=== PATIENT | male | born 1995 | race Caucasian/White ===

== ENCOUNTER 2017-08-27 08:47 | Emergency (ER) | payer MEDICAID ==
[2017-08-27] MEDS: DIPHTH/TET/ACEL PERTUSS (ADULT) 0.5 ML VIAL IM* (09:09)
[2017-08-27] MEDS: LIDOCAINE 1% (MDV) 10 ML INJ INJ (09:17)
[2017-08-27] MEDS ORDERED: LIDOCAINE 1% (MDV) 20 ML INJ SC (09:30)
[2017-08-27] MEDS: CEPHALEXIN 500 MG CAP PO (10:37)
== END 2017-08-27 13:54 | disposition short-term general hospital (02) ==
LOC: FTE 08:47
DX: S61.012A Laceration without foreign body of left thumb without damage to nail, initial encounter (principal); W26.0XXA Contact with knife, initial encounter; Y92.89 Other specified places as the place of occurrence of the external cause; Z23 Encounter for immunization
CPT/HCPCS: 12002; 90471; 90715; 99285-25

== ENCOUNTER 2017-08-31 10:19 | Emergency (ER) | payer MEDICAID | END 2017-08-31 11:13 | disposition home or self-care (01) | LOC: FTE 10:19 | DX: Z48.01 Encounter for change or removal of surgical wound dressing (principal) | CPT/HCPCS: 99281; Z7502 ==

== ENCOUNTER 2017-09-04 08:38 | Emergency (ER) | payer MEDICAID | END 2017-09-04 09:55 | disposition home or self-care (01) | LOC: FTE 08:38 | DX: Z48.02 Encounter for removal of sutures (principal) | CPT/HCPCS: 99281; Z7502 ==